=== PATIENT | male | born 1975 | race Caucasian/White ===

== ENCOUNTER → 2018-07-29 | Outpatient (CLI) | payer BC ==
--- NOTE | 2018-07-29 11:56 | ECHOF ---
Referral Reason:I10 Hypertension, R01.1 Murmur MEASUREMENTS -------- HEIGHT: 182.9 cm WEIGHT: 11.3 kg BP: IVSd: 1.4 cm (0.6 - 1.1) LVIDd: 2.7 cm (3.9 - 5.3) LVPWd: 1.5 cm (0.6 - 1.1) IVSs: 1.6 cm LVIDs: 1.6 cm LVPWs: 1.6 cm Ao Diam: 3.1 cm (2.0 - 3.7) AV Cusp: 2.5 cm (1.5 - 2.6) LA Diam: 3.9 cm (2.7 - 3.8) MV EXCURSION: 13.189 mm (> 18.000) MV EF SLOPE: 62 mm/s (70 - 150) EPSS: 0.7 cm MV E Byron: 0.81 m/s MV DecT: 112 ms MV A Byron: 1.38 m/s MV E/A Ratio: 0.59 RAP: 5.00 mmHg RVSP: 12.23 mmHg FINDINGS -------- Sinus rhythm. This was a technically difficult study with suboptimal views. The left ventricular size is normal. There is moderate concentric left ventricular hypertrophy. O verall left ventricular systolic function is normal with, an EF between 55 - 60 %. The right ventricle is normal in size and function. The left atrium is normal in size. The right atrium is normal in size. xx ml of Lumason was utilized for enhancement of images. The aortic valve is trileaflet, and appears structurally normal. No aortic stenosis or regurgitation. The mitral valve is normal. There is trace mitral regurgitation. Trace tricuspid regurgitation present. There is no evidence of pulmonary hypertension. The right ventricular systolic pressure, as measured by Doppler, is 12.23mmHg. There is no pulmonic regurgitation present. The aortic root size is normal. There is no pericardial effusion. CONCLUSIONS -------- 1. Sinus rhythm. 2. This was a technically difficult study with suboptimal views. 3. The left ventricular size is normal. 4. There is moderate concentric left ventricular hypertrophy. 5. Overall left ventricular systolic function is normal with, an EF between 55 - 60 %. 6. The left atrium is normal in size. 7. xx ml of Lumason was utilized for enhancement of images. 8. The aortic valve is trileaflet, and appears structurally normal. No aortic stenosis or regurgitati on. 9. There is trace mitral regurgitation. 10. Trace tricuspid regurgitation present. 11. There is no evidence of pulmonary hypertension. 12. There is no pulmonic regurgitation present. 13. The aortic root size is normal. 14. There is no pericardial effusion. SUPERINTENDENT TRACK: Teresa Avina RDCS
--- NOTE | 2018-07-29 12:51 | EST ---
EXERCISE STRESS AGE: 42 SEX: M HT: 6' WT: 225 PROTOCOL: Gold STAGE: III DURATION OF EXERCISE: 9:24 HEART RATE REST: 71 BLOOD PRESSURE REST: 133/103 MAXIMUM HEART RATE ACHIEVED: 158 MAXIMUM BLOOD PRESSURE: 226/104 85% MPHR: 152 100% MPHR: 179 METS: 10.9 INDICATIONS: Hypertension, murmur, chest pain. CLINICAL INFORMATION: Baseline rhythm is sinus mechanism, rate 71, normal axis, intervals. Normal echocardiogram. Baseline blood pressure 133/103 mmHg. Patient exercised on Gold protocol for 9 minute 24 seconds reaching a peak rate 158 beats per minute which is equal to 88% maximum predicted heart rate. Peak blood pressure 226/104 mmHg. Test was terminated due to fatigue. There was no chest pain. Electrocardiograph monitoring revealed no evidence of diagnostic ischemic ST deviation. CONCLUSION: 1. Average exercise tolerance with normal electrocardiographic response to exercise. 2. No evidence of significant arrhythmia. MMODL / IJN: [id number] /
== END | disposition home or self-care (01) ==
LOC: RADNMMAIN 08:50
PROVIDERS: ATTEND Internal Medicine
DX: I11.9 Hypertensive heart disease without heart failure (principal); J45.909 Unspecified asthma, uncomplicated; F17.210 Nicotine dependence, cigarettes, uncomplicated; Z86.73 Personal history of transient ischemic attack (TIA), and cerebral infarction without residual deficits
CPT/HCPCS: 93017; 93306; Q9950

== ENCOUNTER → 2019-05-24 | Outpatient (CLI) | payer BC ==
--- NOTE | 2019-05-24 09:35 | US ---
EXAMINATION TYPE: US abdomen limited DATE OF EXAM: 05/24/2019 COMPARISON: NONE CLINICAL HISTORY: 43-year-old male R74.8 elevated liver enzymes. Elevated liver enzymes. TECHNIQUE: Multiple sonographic images of the right upper quadrant are obtained. FINDINGS: ELECTRICAL CHECKOUT MECHANIC NOTES: Exam limited due to barrel chested body habitus. EXAM MEASUREMENTS: Liver Length: 15 cm Gallbladder Wall: .3 cm CBD: .24 cm Right Kidney: 11.2 x 5.5 x 4.5 cm Pancreas: Obscured by bowel gas Liver: Heterogenous increased attenuation. Gallbladder: No stones seen limited visualization Evidence for sonographic Waggoner's sign: No CBD: wnl Right Kidney: wnl IMPRESSION: 1. Heterogeneous and echogenic appearance to the liver. Correlate for underlying hepatic steatosis or nonspecific hepatocellular disease. 2. No evidence for cholelithiasis or biliary ductal dilatation.
== END | disposition home or self-care (01) ==
LOC: RADUSWWP 07:39
PROVIDERS: ATTEND Internal Medicine
DX: R74.8 Abnormal levels of other serum enzymes (principal)
CPT/HCPCS: 76705

== ENCOUNTER → 2019-06-04 | Outpatient (CLI) | payer BC | END | disposition home or self-care (01) | LOC: LABWHC1 12:55 | PROVIDERS: ATTEND Internal Medicine | DX: E83.52 Hypercalcemia (principal) | CPT/HCPCS: 36415; 82330; 83970 ==

== ENCOUNTER → 2019-06-11 | Outpatient (CLI) | payer BC ==
[2019-06-11 12:14] LABS: HCT 41.3 % (39.0-53.0); HGB 14.4 gm/dL (13.0-17.5); MCH 32.8 pg (25.0-35.0); MCHC 34.9 g/dL (31.0-37.0); Mean Platelet Volume 8.1; Platelet Count 323 k/uL (150-450); RDW 12.3 % (11.5-15.5); WBC 6.9 k/uL (3.8-10.6)
[2019-06-11 12:15] LABS: Prothrombin Time 10.5 sec (9.0-12.0)
[2019-06-11 21:18] LABS: Albumin 4.8 g/dL (3.80-4.90); Bilirubin, Conjugated 0.6 mg/dL (0.20-0.40); Bilirubin,Unconjugated 1.3 mg/dL; Globulin 1.6 g/dL (1.6-3.3); Total Bilirubin 1.9 mg/dL (0.2-1.2); Total Protein 6.4 g/dL (6.2-8.2)
[2019-06-11 21:20] LABS: Protein, Total 6.5 g/dL (6.2-8.2)
[2019-06-11 21:22] LABS: Iron Saturation 33.75 (15.00-50.00)
[2019-06-11 21:30] LABS: Ferritin 205.1 ng/mL (22.0-322.0)
[2019-06-12 10:54] LABS: Ceruloplasmin 23.5 mg/dL (20.0-60.0)
== END | disposition home or self-care (01) ==
LOC: LABWHC1 11:22
PROVIDERS: ATTEND Physician Assistant
DX: R74.8 Abnormal levels of other serum enzymes (principal)
CPT/HCPCS: 36415; 80076; 82390; 82728; 83516; 83540; 83550; 84165; 85027; 85610; 86038

== ENCOUNTER → 2019-09-20 | Outpatient (CLI) | payer BC ==
[2019-09-20 15:41] LABS: Albumin 4.7 g/dL (3.80-4.90); Albumin/Globulin Ratio 2.76 (1.60-3.17); Bilirubin, Conjugated 0.7 mg/dL (0.20-0.40); Bilirubin,Unconjugated 1.4 mg/dL; Globulin 1.7 g/dL (1.6-3.3); Total Bilirubin 2.1 mg/dL (0.3-1.2); Total Protein 6.4 g/dL (6.2-8.2)
== END | disposition home or self-care (01) ==
LOC: LABWHC1 09:21
PROVIDERS: ATTEND Physician Assistant
DX: K76.0 Fatty (change of) liver, not elsewhere classified (principal)
CPT/HCPCS: 36415; 80076

== ENCOUNTER → 2020-04-12 | Outpatient (CLI) | payer BC ==
[2020-04-12 14:00] LABS: Albumin/Globulin Ratio 2.38 (1.60-3.17); Bilirubin, Conjugated 0.6 mg/dL (0.20-0.40); Bilirubin,Unconjugated 1.7 mg/dL; Globulin 2.1 g/dL (1.6-3.3); Total Bilirubin 2.3 mg/dL (0.2-1.2); Total Protein 7.1 g/dL (6.2-8.2)
== END | disposition home or self-care (01) ==
LOC: LABWHC1 07:06
PROVIDERS: ATTEND Physician Assistant
DX: K76.0 Fatty (change of) liver, not elsewhere classified (principal)
CPT/HCPCS: 36415; 80076

== ENCOUNTER 2020-05-15 08:00 | Day surgery (SDC) | payer BC ==
[2020-05-11 11:20] VITALS: BMI 29.2
[~2020-05-15 08:00] MED LIST: LACTATED RINGERS 1,000 ML IV SCH
[2020-05-15 08:28] VITALS: RESP 16; TEMP 97.1
[2020-05-15 08:39] LABS: Glucose,Whole Blood 118 mg/dL (75-99)
[2020-05-15] MEDS ORDERED: PROPOFOL 10 MG/ML 20 ML VIAL IV ONE (08:52)
--- NOTE | 2020-05-15 09:24 | P.PCN ---
Date of Procedure: 05/15/20 Description of Procedure: BRIEF HISTORY: Patient is a 44-year-old male presenting for outpatient colonoscopy for a family history of colon cancer. Denies any change in bowel habits, blood per rectum or abdominal pain. PROCEDURE PERFORMED: Colonoscopy. PREOPERATIVE DIAGNOSIS: Family history of colon cancer, no prior colonoscopy. ESTIMATED BLOOD LOSS: Minimal. IV sedation per Anesthesia. PROCEDURE: After informed consent was obtained, the patient, was brought into the endoscopy unit. IV sedation was administered by Anesthesia under continuous monitoring. Digital rectal examination was normal. Initially the Olympus CF-190 flexible video colonoscope was then inserted in the rectum, gradually advanced into the cecum without any difficulty. Careful examination was performed as the scope was gradually being withdrawn. Ileocecal valve and the appendiceal orifice were visualized and appeared normal. Prep was excellent. Mucosa of the cecum, ascending colon, transverse colon, descending colon, sigmoid colon, and rectum appeared normal. Retroflexion was performed in the rectum and no lesions were seen, except for some low-grade internal hemorrhoids. The patient tolerated the procedure well. IMPRESSION: Normal-appearing colon from rectum to cecum. Low-grade internal hemorrhoids. RECOMMENDATIONS: Findings of this examination were discussed with the patient. Okay to resume diet. Okay to resume medications. Would recommend repeat colonoscopy in 5 years for screening for malignant neoplasm colon with family history of colon cancer.
[2020-05-15 09:40] VITALS: BP 121/79; PULSE 70
== END 2020-05-15 10:19 | disposition home or self-care (01) ==
LOC: ORWHC2ENDO 08:00
PROVIDERS: ATTEND Internal Medicine
DX: Z12.11 Encounter for screening for malignant neoplasm of colon (principal); K64.8 Other hemorrhoids; Z80.0 Family history of malignant neoplasm of digestive organs; I10 Essential (primary) hypertension; E78.5 Hyperlipidemia, unspecified; J45.909 Unspecified asthma, uncomplicated; K21.9 Gastro-esophageal reflux disease without esophagitis; Z79.84 Long term (current) use of oral hypoglycemic drugs; Z79.899 Other long term (current) drug therapy; Z87.891 Personal history of nicotine dependence; Z98.890 Other specified postprocedural states
CPT/HCPCS: J2704; G0105

== ENCOUNTER → 2020-07-07 | Outpatient (CLI) | payer BC | END | disposition home or self-care (01) | LOC: LABWHC1 10:34 | PROVIDERS: ATTEND Internal Medicine | DX: R05 Cough (principal) | CPT/HCPCS: U0003; C9803 ==

== ENCOUNTER → 2022-08-20 | Outpatient (CLI) | payer BC ==
[2022-08-20 20:48] LABS: Clam IgE <0.10 kU/L; Codfish IgE <0.10 kU/L; Peanut IgE <0.10 kU/L; Scallop IgE <0.10 kU/L; Shrimp IgE <0.10 kU/L; Soybean IgE <0.10 kU/L; Walnut IgE (Food) <0.10 kU/L
[2022-08-20 20:49] LABS: Egg White IgE <0.10 kU/L
== END | disposition home or self-care (01) ==
LOC: LABWHC1 11:50
PROVIDERS: ATTEND Surgery
DX: R13.10 Dysphagia, unspecified (principal)
CPT/HCPCS: 36415; 82785; 86003